=== PATIENT | male | born 1965 | race Two or more races ===

== ENCOUNTER 2017-11-19 20:17 | Emergency (ER) | payer SELFPAY ==
[~2017-11-19] VITALS: Ht 175.3 cm; Wt 74.8 kg
[2017-11-19 21:30] LABS: BASOPHILS % 0.4 % (0.0-1.0); EOSINOPHILS # (AUTO) 0.4 (0.0-0.4); EOSINOPHILS % 4.6 % (0.0-6.0); HEMOGLOBIN 14.8 g/dL (14.0-18.0); LYMPHOCYTES # (AUTO) 2.2 (1.0-3.2); LYMPHOCYTES % 27.9 % (18.0-39.1); MEAN CORPUSCULAR HEMOGLOBIN 33.5 pg (28-32); MEAN CORPUSCULAR HGB CONC 34.4 g/dL (31-35); MEAN CORPUSCULAR VOLUME 97.3 fL (81-99); MONOCYTES # (AUTO) 0.7 (0.2-0.8); MONOCYTES % 8.3 % (4.4-11.3); NEUTROPHILS # (AUTO) 4.6 (2.1-6.9); NEUTROPHILS % 58.5 % (38.7-80.0); PLATELET COUNT 200 x10e3/uL (140-360); RED BLOOD COUNT 4.42 x10e6/uL (4.3-5.7); RED CELL DISTRIBUTION WIDTH 13.1 % (11.7-14.4)
--- NOTE | 2017-11-19 21:50 | Diagnostic Imaging Report ---
CHEST SINGLE (NOT PORTABLE), 11/19/2017 8:59 PM Technique: CHEST SINGLE (NOT PORTABLE) Comparison: None available. Clinical history: Chest pain Findings: Unremarkable appearance of the heart, mediastinum, lungs and pleural spaces. Asymmetric widening of the right AC joint compared to the left, which may be related to prior injury or postsurgical. Impression: 1. Lines/Tubes: None 2. No acute abnormality. Signed by: Dr Kailyn Barcenas MD on 11/19/2017 9:46 PM
[2017-11-19 21:54] LABS: ALANINE AMINOTRANSFERASE 25 IU/L (0-55); ALBUMIN/GLOBULIN RATIO 1.2 (0.8-2.0); ALKALINE PHOSPHATASE 73 IU/L (40-150); ANION GAP 13.5 mmol/L (8-16); BLOOD UREA NITROGEN 12 mg/dL (7-26); BUN/CREATININE RATIO 11 (6-25); CALCIUM 9.3 mg/dL (8.4-10.2); CARBON DIOXIDE 26 mmol/L (22-29); CHLORIDE 106 mmol/L (98-107); CREATINE KINASE 104 IU/L (30-200); CREATININE, SERUM 1.08 mg/dL (0.72-1.25); EST GLOMERULAR FILTRATION RATE > 60 ML/MIN (60-); GLUCOSE 117 mg/dL (74-118); POTASSIUM 3.5 mmol/L (3.5-5.1); SODIUM 142 mmol/L (136-145)
[2017-11-19 23:23] VITALS: BP 128/76
== END 2017-11-19 23:29 | disposition home or self-care (01) ==
LOC: ER 20:17
DX: F41.1 Generalized anxiety disorder (principal); R07.89 Other chest pain; F17.200 Nicotine dependence, unspecified, uncomplicated
CPT/HCPCS: 36415; 71045; 80053; 82550; 82553; 84484; 85025; 93005; 99283